=== PATIENT | female | born 1940 | race Caucasian/White ===

== ENCOUNTER → 2018-06-10 14:03 | Outpatient (CLI) | payer MEDICARE, SELFPAY | PROVIDERS: Family Provider Internal Medicine Nephrology; PCP Internal Medicine Nephrology; Visit Provider Family Medicine | DX: G90.9 Disorder of the autonomic nervous system, unspecified (principal); L97.412 Non-pressure chronic ulcer of right heel and midfoot with fat layer exposed; L97.511 Non-pressure chronic ulcer of other part of right foot limited to breakdown of skin; L97.521 Non-pressure chronic ulcer of other part of left foot limited to breakdown of skin; I70.201 Unspecified atherosclerosis of native arteries of extremities, right leg | CPT/HCPCS: 11042; 97597; 99203; 99213 ==

== ENCOUNTER → 2018-06-22 14:01 | Outpatient (CLI) | payer MEDICARE, SELFPAY | PROVIDERS: Family Provider Internal Medicine Nephrology; PCP Internal Medicine Nephrology; Visit Provider Family Medicine | DX: G90.9 Disorder of the autonomic nervous system, unspecified (principal); L97.412 Non-pressure chronic ulcer of right heel and midfoot with fat layer exposed; L97.521 Non-pressure chronic ulcer of other part of left foot limited to breakdown of skin; I70.201 Unspecified atherosclerosis of native arteries of extremities, right leg | CPT/HCPCS: 97597 ==

== ENCOUNTER → 2018-06-29 09:40 | Outpatient (CLI) | payer MEDICARE, SELFPAY | PROVIDERS: Family Provider Internal Medicine Nephrology; PCP Internal Medicine Nephrology; Visit Provider Family Medicine | DX: G60.9 Hereditary and idiopathic neuropathy, unspecified (principal); L97.412 Non-pressure chronic ulcer of right heel and midfoot with fat layer exposed; L97.521 Non-pressure chronic ulcer of other part of left foot limited to breakdown of skin; I70.201 Unspecified atherosclerosis of native arteries of extremities, right leg | CPT/HCPCS: 99212; 99213 ==

== ENCOUNTER → 2021-08-08 13:40 | Outpatient (CLI) | payer MEDICARE, SELFPAY | PROVIDERS: Family Provider Internal Medicine Nephrology; PCP Internal Medicine Nephrology; Referring Provider Internal Medicine Nephrology; Visit Provider Family Medicine | DX: L89.313 Pressure ulcer of right buttock, stage 3 (principal); L08.9 Local infection of the skin and subcutaneous tissue, unspecified; I12.0 Hypertensive chronic kidney disease with stage 5 chronic kidney disease or end stage renal disease; N18.6 End stage renal disease; R63.4 Abnormal weight loss; Z99.3 Dependence on wheelchair; Z59.89 Other problems related to housing and economic circumstances; Z63.8 Other specified problems related to primary support group; Z79.01 Long term (current) use of anticoagulants; Z74.09 Other reduced mobility | CPT/HCPCS: 11042; 87070; 87075; 87077; 87186; 87205; 99204; 99213 ==

== ENCOUNTER → 2021-08-20 14:23 | Outpatient (CLI) | payer MEDICARE, SELFPAY | PROVIDERS: Family Provider Internal Medicine Nephrology; PCP Internal Medicine Nephrology; Referring Provider Internal Medicine Nephrology; Visit Provider Family Medicine | DX: L89.313 Pressure ulcer of right buttock, stage 3 (principal); L08.9 Local infection of the skin and subcutaneous tissue, unspecified; B95.61 Methicillin susceptible Staphylococcus aureus infection as the cause of diseases classified elsewhere; B95.2 Enterococcus as the cause of diseases classified elsewhere; N18.6 End stage renal disease; R63.4 Abnormal weight loss; Z99.3 Dependence on wheelchair; Z59.89 Other problems related to housing and economic circumstances; Z63.8 Other specified problems related to primary support group; Z79.01 Long term (current) use of anticoagulants; Z74.09 Other reduced mobility | CPT/HCPCS: 11042; 87070; 87075; 87077; 87147; 87186; 87205; 99214 ==

== ENCOUNTER 2021-08-20 21:36 | Emergency (ER) | payer MEDICARE, SELFPAY ==
--- NOTE | 2021-08-20 21:46 | ED.GENADULT ---
HPI - General Adult General Chief complaint: Wound/Laceration Stated complaint: Bleeding Bed sore Time Seen by Provider: 08/20/21 21:36 History of Present Illness HPI narrative: 81-year-old female nonsmoker with history of SVT and GI bleed presents by EMS for evaluation of a bleeding wound on her right buttock. She had had some skin breakdown that was followed by wound care and had a debridement today. She started bleeding sooner after and reports a fairly large amount of blood that is saturated her clothing and at home. She denies much in the way of systemic findings and is not dizzy, weak or lightheaded. She has no chest pain or shortness of breath. She denies nausea, vomiting or diarrhea. Related Data Home Medications Medication Instructions Recorded Confirmed amlodipine 5 mg tablet (Norvasc) 10 mg PO QDAY #0 09/18/10 carvedilol 12.5 mg tablet (Coreg) 12.5 mg PO HS #0 09/18/10 lovastatin 40 mg tablet 20 mg PO QDAY #0 09/18/10 furosemide 40 mg tablet 80 mg PO QDAY #0 02/08/16 omeprazole 20 mg capsule,delayed 20 mg PO BID #0 02/08/16 release oxycodone 40 mg tablet,crush 10 mg #0 02/08/16 resistant,extended release 12 hr (OxyContin) sevelamer carbonate 800 mg tablet 800 mg PO TIDCC #0 02/08/16 (Renvela) naproxen 250 mg tablet 250 mg PO BID #0 02/21/16 carvedilol 25 mg tablet (Coreg) 25 mg PO QDAY #0 09/10/16 folic acid 1 mg tablet 1 mg PO TID #0 09/10/16 levothyroxine 150 mcg tablet 0.15 mg PO QAM #0 09/10/16 sodium polystyrene sulfonate 15 #0 09/10/16 gram-sorbitol 20 gram/60 mL oral susp (SPS (with sorbitol)) Allergies Allergy/AdvReac Type Severity Reaction Status Date / Time amoxicillin [AMOXICILLIN] Allergy Severe THROAT Unverified 08/12/17 12:10 SWELLING Penicillins [PENICILLINS] Allergy Severe I PUFF Unverified 08/12/17 12:10 UP, THROAT SWELLING Sulfa (Sulfonamide Allergy Unknown MOM HAD Unverified 08/12/17 12:10 Antibiotics) RXN, NOT PT [SULFA (SULFONAMIDE ANTIBIOTICS)] Review of Systems Review of Systems Narrative: GENERAL: Denies chills, fatigue, malaise, fever, sweats. HEENT: Denies sinus pain, ear pain, sore throat, difficulty swallowing, dizziness. RESPIRATORY: Denies dyspnea, cough, wheezing, hemoptysis, sputum. CARDIOVASCULAR: Denies chest pain, palpitations, orthopnea, edema, GASTROINTESTINAL: Denies nausea, vomiting, abdominal pain, diarrhea, constipation, melena. : Denies dysuria, frequency, incontinence, hematuria, urinary retention. MUSCULOSKELETAL: denies weakness, joint pain, or bony pain SKIN: See HPI NEUROLOGIC: Denies weakness, headache, numbness, change in speech, confusion, seizures, incoordination. PSYCHIATRIC: No concerning psychosocial issues. 12 point review of systems is negative except for those stated above Exam Narrative Exam Narrative: GENERAL: [81] year old patient appears stated age. Well-developed patient, in mild distress. Anxious HEAD: Atraumatic. Normocephalic. EYES: Pupils equal round and reactive. Extraocular motions intact. No scleral icterus. No injection or drainage. ENT: Nose without bleeding, purulent drainage. Throat without erythema, tonsillar hypertrophy or exudate. Airway patent. NECK: Trachea midline. Non tender CARDIOVASCULAR: Regular rate and rhythm without murmurs, gallops, or rubs. RESPIRATORY: Clear to auscultation. Breath sounds equal bilaterally. No wheezes, rales, or rhonchi. GASTROINTESTINAL: Abdomen soft, non-tender, nondistended. EXTREMITIES: No edema or joint tenderness. BACK: Nontender without deformity or crepitance. No flank tenderness. NEURO: AOx3. SKIN: 3 cm deep wound with clean edges and recent debridement on right buttock with slow oozing bleeding, no arterial involvement. No rash or erythema of visible areas Initial Vital Signs Initial Vital Signs: Vital Signs Pulse Rate 74 08/20/21 21:55 Pulse Oximetry 98 08/20/21 21:55 Course Course Course Narrative: 2144 -edges of wound injected with lidocaine with epinephrine and wound packed with Surgicel and pressure applied by 4x4s. Labs ordered Orders Ordered: ED Orders 08/20/21 21:53 Hemoglobin and Hematocrit Stat Discontinued Medications Lidocaine/Epinephrine (Lidocaine 1% W/Epi) 1 ml SUBCUT NOW ONE Stop: 08/20/21 21:37 Last Admin: 08/20/21 22:00 Dose: 1 ml Documented by: SHAHEED Vital Signs Vital signs: Vital Signs - 8 hr 08/20/21 21:55 08/20/21 21:57 08/20/21 22:00 Temperature 98.4 F Pulse Rate 74 72 74 Respiratory Rate 16 Blood Pressure 137/71 Pulse Oximetry 98 97 98 08/20/21 22:30 Temperature Pulse Rate 71 Respiratory Rate Blood Pressure Pulse Oximetry 96 Medical Decision Making Lab Data Result diagrams: 08/20/21 21:53 Labs: Lab Results 08/20/21 Range/Units 21:53 Hgb 9.2 L (12.0-16.0) g/dL Hct 27.6 L (36-46) % MDM Narrative Medical decision making narrative: Patient presents with bleeding from recent wound debridement, bleeding well controlled emergency department, observed for 2 hours, vital signs are stable, she has no systemic complaints, H&H stable. Discharge Plan Departure Patient Disposition: Home Clinical Impression: Bleeding from wound Instructions: How to Care for a Surgical Wound Activity Restrictions/Additional Instructions: *You have been diagnosed with [bleeding wound on buttock, resolved with intervention. Lab work is reassuring and bleeding is controlled *What to do: *Please continue to take your regular medications as directed. [ ] New medication prescriptions sent to your pharmacy: [ ] [ ] New medication written as a paper prescription [x ] No new medications given *Please follow up with your primary care provider in 2-3 days, call for an appointment. Let them know you were seen in the Emergency Department and that we ask that you be seen in follow up. We will electronically transmit a record of today's note if your PCP is in our system *If you do not have a primary care provider please contact the [facility] Resource line at [phone]. They will ask some questions about your medical history and help get you set up with a doctor in the community. *Return to Emergency Department if you should have any new, worsening or concerning symptoms, such as [fever greater than 101 F, shaking chills, worsening pain, persistent vomiting or other bothersome symptoms] Prescriptions: No Action carvedilol [Coreg] 12.5 MG tablet 12.5 mg PO HS Qty: 0 0RF lovastatin 40 MG tablet 20 mg PO QDAY Qty: 0 0RF amlodipine [Norvasc] 5 MG tablet 10 mg PO QDAY Qty: 0 0RF furosemide 40 MG tablet 80 mg PO QDAY Qty: 0 0RF omeprazole 20 MG capsule,delayed release(DR/EC) 20 mg PO BID Qty: 0 0RF sevelamer carbonate [Renvela] 800 MG tablet 800 mg PO TIDCC Qty: 0 0RF oxycodone [OxyContin] 40 MG tablet,oral only,ext.rel.12 hr 10 mg Qty: 0 0RF naproxen 250 MG tablet 250 mg PO BID Qty: 0 0RF folic acid 1 MG tablet 1 mg PO TID Qty: 0 0RF levothyroxine 150 MCG tablet 0.15 mg PO QAM Qty: 0 0RF carvedilol [Coreg] 25 MG tablet 25 mg PO QDAY Qty: 0 0RF sodium polystyrene sulf-sorbtl [SPS (with sorbitol)] 15-20 gram/60 mL suspension Qty: 0 0RF Referrals: Georges Sands MD [Primary Care Provider] -
[2021-08-20 21:55] VITALS: PULSE 74; O2SAT 98
[2021-08-20 21:57] VITALS: BP 137/71; PULSE 72; RESP 16; TEMP 36.9; O2SAT 97
[2021-08-20 22:00] VITALS: PULSE 74; O2SAT 98
[2021-08-20 22:00] LABS: Hematocrit 27.6 % (36-46); Hemoglobin 9.2 g/dL (12.0-16.0)
[2021-08-20] MEDS: LIDOCAINE 1% W/EPI 1 ML SUBCUT (22:00)
[2021-08-20 22:30] VITALS: PULSE 71; O2SAT 96
== END 2021-08-21 01:21 | disposition home or self-care (01) ==
PROVIDERS: Emergency Provider Emergency Medicine; Family Provider Internal Medicine Nephrology; PCP Internal Medicine Nephrology
DX: L76.22 Postprocedural hemorrhage of skin and subcutaneous tissue following other procedure (principal)
CPT/HCPCS: 11042; 85014; 85018; 87070; 87075; 87077; 87147; 87186; 87205; 99281; 99282

== ENCOUNTER → 2021-08-27 14:53 | Outpatient (CLI) | payer MEDICARE, SELFPAY | PROVIDERS: Family Provider Internal Medicine Nephrology; PCP Internal Medicine Nephrology; Referring Provider Internal Medicine Nephrology; Visit Provider Family Medicine | DX: L89.313 Pressure ulcer of right buttock, stage 3 (principal); L89.213 Pressure ulcer of right hip, stage 3; L08.89 Other specified local infections of the skin and subcutaneous tissue; B95.61 Methicillin susceptible Staphylococcus aureus infection as the cause of diseases classified elsewhere; B95.2 Enterococcus as the cause of diseases classified elsewhere; R63.4 Abnormal weight loss; N18.6 End stage renal disease; Z99.2 Dependence on renal dialysis; Z99.3 Dependence on wheelchair; Z59.89 Other problems related to housing and economic circumstances; Z63.8 Other specified problems related to primary support group; Z79.01 Long term (current) use of anticoagulants; Z74.09 Other reduced mobility | CPT/HCPCS: 11042; 17250; 99214 ==

== ENCOUNTER → 2021-09-03 15:05 | Outpatient (CLI) | payer MEDICARE, SELFPAY | PROVIDERS: Family Provider Internal Medicine Nephrology; PCP Internal Medicine Nephrology; Referring Provider Internal Medicine Nephrology; Visit Provider Family Medicine | DX: L89.313 Pressure ulcer of right buttock, stage 3 (principal); L89.213 Pressure ulcer of right hip, stage 3; L08.89 Other specified local infections of the skin and subcutaneous tissue; B95.61 Methicillin susceptible Staphylococcus aureus infection as the cause of diseases classified elsewhere; B95.2 Enterococcus as the cause of diseases classified elsewhere; I12.0 Hypertensive chronic kidney disease with stage 5 chronic kidney disease or end stage renal disease; N18.6 End stage renal disease; R63.4 Abnormal weight loss; Z99.3 Dependence on wheelchair; Z79.01 Long term (current) use of anticoagulants; Z59.89 Other problems related to housing and economic circumstances; Z74.09 Other reduced mobility; Z89.421 Acquired absence of other right toe(s) | CPT/HCPCS: 11042; 87070; 87075; 87205; 99212 ==

== ENCOUNTER → 2021-09-10 15:33 | Outpatient (CLI) | payer MEDICARE, SELFPAY | PROVIDERS: Family Provider Internal Medicine Nephrology; PCP Internal Medicine Nephrology; Referring Provider Internal Medicine Nephrology; Visit Provider Family Medicine | DX: L89.313 Pressure ulcer of right buttock, stage 3 (principal); L89.213 Pressure ulcer of right hip, stage 3; R63.4 Abnormal weight loss; N18.6 End stage renal disease; Z99.2 Dependence on renal dialysis; Z99.3 Dependence on wheelchair; Z59.89 Other problems related to housing and economic circumstances; Z79.01 Long term (current) use of anticoagulants | CPT/HCPCS: 11042 ==

== ENCOUNTER 2021-09-14 13:47 | Emergency (ER) | payer MEDICARE, SELFPAY ==
[2021-09-14] VITALS (11 sets, daily range): BP systolic 95–125; BP diastolic 51–88; PULSE 73–91; RESP 12–22; TEMP 37.4; O2SAT 92–100; BMI 26.4
--- NOTE | 2021-09-14 15:22 | ED_ITS ---
HPI - Wound/Laceration General Chief Complaint: Wound/Laceration Stated Complaint: pain lower back 2 hours Time Seen by Provider: 09/14/21 15:02 Source: patient Mode of arrival: Ambulatory History of Present Illness HPI narrative: Patient is an 81-year-old female. His end-stage renal disease on dialysis. Is followed by Nephrology. Does not have a primary doctor. Is also seeing wound care secondary to a pressure ulcer on her right hip/buttocks. She is currently on antibiotics although she is unsure exactly what antibiotic that it is. Her next dialysis is on Thursday of next week. She has had lower back pain and left hip pain for many weeks/months. She has been admitted to the hospital in the past and has been on IV antibiotics in the past which what sounds like has been osteomyelitis. She is on oxycodone at home that is prescribed by her installation drafter. She is here because over the past several days and especially over the past 24 hours she states that the pain is discussed to the point where she can not take it anymore. She can not sleep at night. At baseline she can walk but needs a walker. Her has to help her around to do most of her activities of daily living. She has not fallen. She has no fevers. She is taking all of her medications as directed. No change in any neurologic status. She stated multiple times that the discomfort that she arrives with today is the same discomfort that she has had for multiple months but she does cannot take the pain any longer. Related Data Home Medications Medication Instructions Recorded Confirmed amlodipine 5 mg tablet (Norvasc) 10 mg PO QDAY #0 09/18/10 carvedilol 12.5 mg tablet (Coreg) 12.5 mg PO HS #0 09/18/10 lovastatin 40 mg tablet 20 mg PO QDAY #0 09/18/10 furosemide 40 mg tablet 80 mg PO QDAY #0 02/08/16 omeprazole 20 mg capsule,delayed 20 mg PO BID #0 02/08/16 release oxycodone 40 mg tablet,crush 10 mg #0 02/08/16 resistant,extended release 12 hr (OxyContin) sevelamer carbonate 800 mg tablet 800 mg PO TIDCC #0 02/08/16 (Renvela) naproxen 250 mg tablet 250 mg PO BID #0 02/21/16 carvedilol 25 mg tablet (Coreg) 25 mg PO QDAY #0 09/10/16 folic acid 1 mg tablet 1 mg PO TID #0 09/10/16 levothyroxine 150 mcg tablet 0.15 mg PO QAM #0 09/10/16 sodium polystyrene sulfonate 15 #0 09/10/16 gram-sorbitol 20 gram/60 mL oral susp (SPS (with sorbitol)) Allergies Allergy/AdvReac Type Severity Reaction Status Date / Time amoxicillin [AMOXICILLIN] Allergy Severe THROAT Unverified 08/12/17 12:10 SWELLING Penicillins [PENICILLINS] Allergy Severe I PUFF Unverified 08/12/17 12:10 UP, THROAT SWELLING Sulfa (Sulfonamide Allergy Unknown MOM HAD Unverified 08/12/17 12:10 Antibiotics) RXN, NOT PT [SULFA (SULFONAMIDE ANTIBIOTICS)] Review of Systems Constitutional Constitutional: Denies fever(s) Cardiovascular Cardiovascular: Denies chest pain and Denies dyspnea Respiratory Respiratory: Denies dyspnea Gastrointestinal Gastrointestinal: Denies abdominal pain, Denies nausea and Denies vomiting Genitourinary Genitourinary: Denies dysuria Musculoskeletal Musculoskeletal: Reports system reviewed and no additional complaints, except as documented Integumentary/Breasts Skin/Breast: Reports system reviewed and no additional complaints, except as documented Neurologic Neurologic: Reports system reviewed and no additional complaints, except as documented Hematologic/Lymphatic On Anticoagulants: No Allergic/Immunologic Allergic/Immunologic: Reports system reviewed and no additional complaints, except as documented Patient History Medical History End stage renal disease on dialysis PSVT (paroxysmal supraventricular tachycardia) Puncture wound Social History lives independently: Yes Substance Use Type: does not use Exam Initial Vital Signs Initial Vital Signs: Vital Signs Temperature 99.3 F 09/14/21 14:05 Pulse Rate 80 09/14/21 14:05 Respiratory Rate 18 09/14/21 14:05 Blood Pressure 125/88 09/14/21 14:05 Pulse Oximetry 95 09/14/21 14:05 Const General: cooperative, healthy appearing and comfortable HENHI Head: normal to inspection and normocephalic Resp Effort & Inspection: normal respiratory effort Auscultation: clear to auscultation bilaterally Cardio Rate: regular rate Rhythm: regular rhythm GI Inspection: normal to inspection Palpation: soft and No tender Back/Spine/Pelvis Sacroiliac Joints: tender to palpation right Skin Other: Patient has a decubitus ulcer on the right buttocks without surrounding erythema. There is no skin changes over the area where she is having pain on the left side. Neuro General: patient alert and patient awake Cranial Nerves: CN's II-XI intact bilaterally Extrem General: capillary refill normal Psych Appearance: grossly normal Course Orders Ordered: ED Orders 09/14/21 15:24 MR lumbar spine wo/w con Stat 09/14/21 16:00 C-Reactive Protein Quant Stat Complete Blood Count AUTO DIFF Stat Comprehensive Metabolic Panel Stat Erythrocyte Sedimentation Rate Stat Lactate (Lactic Acid) Stat Lipase Stat Discontinued Medications Diazepam (Diazepam 2 Mg Tablet) 2 mg PO NOW ONE Stop: 09/14/21 15:47 Last Admin: 09/14/21 15:49 Dose: 2 mg Documented by: DONNA Fentanyl (Fentanyl 25 Mcg/Patch) 25 mcg TOP NOW ONE Stop: 09/14/21 18:09 Hydromorphone HCl (Hydromorphone 1 Mg Inj) 1 mg IV NOW ONE Stop: 09/14/21 15:25 Last Admin: 09/14/21 15:49 Dose: 1 mg Documented by: KBROTEM Hydromorphone HCl (Hydromorphone 1 Mg Inj) 1 mg IV NOW ONE Stop: 09/14/21 17:26 Last Admin: 09/14/21 17:49 Dose: 1 mg Documented by: JIMMIE Vital Signs Vital signs: Vital Signs - 8 hr 09/14/21 14:05 09/14/21 14:12 09/14/21 14:30 Temperature 99.3 F Pulse Rate 80 91 H 77 Respiratory Rate 18 17 Blood Pressure 125/88 125/58 L 102/62 Pulse Oximetry 95 96 100 09/14/21 15:00 09/14/21 15:30 09/14/21 15:59 Temperature Pulse Rate 76 79 82 Respiratory Rate 17 22 20 Blood Pressure 120/58 L 111/79 Pulse Oximetry 94 99 92 09/14/21 17:03 09/14/21 17:04 Temperature Pulse Rate 78 Respiratory Rate Blood Pressure 95/54 L Pulse Oximetry 93 MDM - Wound/Laceration Lab Data Attestation: I reviewed the patient's lab results. Result diagrams: 09/14/21 16:00 09/14/21 16:00 Labs: Lab Results 09/14/21 09/14/21 09/14/21 Range/Units 16:00 16:00 16:00 WBC 19.6 H (4.5-11.0) X10^3/uL RBC 2.62 L (4.0-5.2) X10^6/uL Hgb 8.5 L (12.0-16.0) g/dL Hct 25.3 L (36-46) % MCV 96.9 (80-100) fL MCH 32.7 (26-34) PG MCHC 33.7 (30-36) % RDW 20.0 H (11.6-14.8) % Plt Count 305 (150-400) X10^3/uL Neut % (Auto) 95.9 H (50-75) % Lymph % (Auto) 1.4 L (25-40) % [place] % (Auto) 2.3 L (3-14) % Eos % (Auto) 0.0 L (2-4) % Baso % (Auto) 0.4 (0-2) % Neut # (Auto) 79508 H (8515-2056) /uL Lymph # (Auto) 300 L (3215-4311) /uL [place] # (Auto) 500 (0-900) /uL Eos # (Auto) 0 (0-450) /uL Baso # (Auto) 100 (0-100) /uL ESR 78 H (0-20) MM/HR Sodium 136 L (137-145) mmol/L Potassium 3.8 (3.4-5.1) mmol/L Chloride 97 L (98-107) mmol/L Carbon Dioxide 36 H (22-32) mmol/L BUN 14 (7-17) mg/dL Creatinine 2.47 H (0.52-1.04) mg/dL Estimated GFR 19 L (>60) mL/min BUN/Creatinine Ratio 5.7 L (6-22) Glucose 85 (80-110) mg/dL Lactate 1.2 (0.7-2.1) mmol/L Calcium 7.9 L (8.4-10.2) mg/dL Total Bilirubin 0.6 (0.2-1.3) mg/dL AST 27 (14-36) IU/L ALT 10 (<35) IU/L Alkaline Phosphatase 195 H (38-126) U/L C-Reactive Protein 2.7 H (<1.0) mg/dL Total Protein 6.1 L (6.3-8.2) g/dL Albumin 2.8 L (3.5-5.0) g/dL Globulin 3.3 (1.7-4.1) g/dL Albumin/Globulin Ratio 0.8 L (1.0-2.8) Lipase 32 (23-300) U/L Imaging Data MRI lumbar: Radiologist's Impression: Launch?[address] [address] Magnetic Resonance Report Signed Patient: Yareli Doran MR#: [id number] : 1940 Acct:[id number] Age/Sex: 81 / F Date of Service: 09/14/21 Loc: ED Accession Number: [id number] ?? Procedure: MR lumbar spine wo/w con Ordering Provider: Kaleb Ruffin D.O. PROCEDURE:? MR LUMBAR SPINE WO/W CON ? INDICATIONS:? eval for osteo lumbar and L Si joint ? TECHNIQUE:? Noncontrast sagittal T1 spin echo and T2 fast spin echo, sagittal STIR, axial T1 and T2 fast spin echo through the lumbar spine.? In cases with scoliosis, additional coronal T2 fast spin echo may be performed.? After the administration of contrast, sagittal and axial T1 spin echo with fat saturation through the lumbar spine.? In this patient, additional images were also obtained through the sacrum, including oblique axial T1 weighted and T2 weighted images, T1 weighted oblique sagittal, stir oblique sagittal T1 weighted, and fat saturated T1 weighted images in the coronal and axial planes.? ? COMPARISON:? [facility], MR, MR LUMBAR SPINE WITH/WITHOUT CONTRAST, 02/28/2021, 17:05.? [facility], MR, MR LUMBAR SPINE WITH/WITHOUT CONTRAST, 07/08/2020, 15:28.? [facility], CT, CT LUMBAR SPINE WITH CONTRAST, 03/05/2021, 10:06. ? FINDINGS:? Image quality:? This examination is limited by involuntary motion artifact.? Metallic artifact from the left hip arthroplasty hardware is seen. ? Alignment and curvature:? There is normal bony alignment.? ? Marrow:? Marrow is of normal overall signal.? No acute vertebral body compression fractures.? At the L2-L3 level, there is again seen decreased T1 weighted signal.? The previously seen increased T2 weighted and STIR signal with enhancement is clearly improved compared to the 02/20/2021 examination, with a mild degree of marrow enhancement remaining.? No other areas of shila abnormal enhancement can be seen. ? Spinal cord:? Conus medullaris terminates at the L1 level.? Visualized spinal cord demonstrates normal signal, without suspicious enhancement.? ? Paraspinous soft tissues:? Generalized soft tissue swelling with edema and enhancement can be seen involving the soft tissues overlying the left sacrum.? No drainable abscess is seen. ? T12-L1:? Moderate loss of disc height is seen.? Loss of disc signal is seen.? Mild generalized disc bulge is seen.? Mild bilateral neural foraminal narrowing is seen.? No significant central canal narrowing is seen. Stable from the prior study.? ? L1-L2:? The disc height is well-preserved.? Loss of disc signal is seen at this level.? Mild generalized disc bulge is seen.? Moderate facet joint hypertrophy is seen.? There is mild right-sided and moderate left-sided neural foraminal narrowing.? No significant central narrowing is seen. When comparison is made with the prior images, these findings are similar.? ? L2-L3:? This disc level demonstrates prominent irregularity of the endplates, as before.? Moderate generalized disc bulge is seen. Moderate facet joint hypertrophy is seen.? There is moderate to severe bilateral neural foraminal narrowing seen, with an associated a degree of compression seen upon the exiting nerve roots.? At least moderate central canal narrowing is seen at this level.? The degree of inflammatory change at this level is improved compared to the prior MRI. ? L3-L4:? Moderate loss of disc height is seen.? Loss of disc signal is seen.? Moderate generalized disc bulge is seen.? At least moderate facet hypertrophy is seen.? There is at least moderate left-sided and mild right-sided neural foraminal narrowing. Mild central canal narrowing is seen.? When comparison is made with the prior images, these findings are similar.? ? L4-L5:? At least moderate loss of disc height and disc signal can be seen.? At least moderate disc bulge is seen.? Moderate to prominent facet hypertrophy is seen.? There is at least moderate bilateral neural foraminal narrowing seen at this level, right worse than left. There is a degree of compression seen upon the exiting nerve roots.? At least moderate central canal narrowing is seen. When comparison is made with the prior images, these findings are similar.? ? L5-S1:? The disc height is well-preserved.? Loss of disc signal is seen at this level.? Moderate generalized disc bulge is seen. Moderate facet joint hypertrophy is seen.? Mild to moderate bilateral neural foraminal narrowing can be seen.? No significant central canal narrowing is seen. Stable from the prior study.? ? ? IMPRESSION:? At L2-L3, there is mild residual abnormal endplate signal and enhancement, which is improved compared to the prior MRI.? The imaging appearance is most consistent with resolving osteomyelitis. ? There is abnormal soft tissue edema and enhancement seen overlying the left sacrum.? However, no soft tissue abscess can be seen.? No sacral osteomyelitis is detected. ? Multiple levels of degenerative change are seen, which appear similar to the prior MRI. ? ? Dictated by: Palmer Boothe M.D. on 09/14/2021 at 16:14 ? ? Approved by: Palmer Boothe M.D. on 09/14/2021 at 16:24?? [facility] Narrative Medical decision making narrative: Patient does have a relatively localized area discomfort over her left upper buttocks/SI joint. There is no skin changes over the area. There does appear to be some fullness under the area. Does not seem to get worse when she stands but is definitely worse with palpation. She does have a leukocytosis and also an elevated ESR and CRP which she also has a right-sided acute was also that she is currently being treated for with antibiotics. Patient is very clear that the symptoms she presents with today are not new and have been going on for months. The MRI shows thickening of the area where she is having the discomfort but no signs of osteomyelitis in this area no signs of abscess. The osteomyelitis of the spine appears to be improving. Patient is not septic. I do suspect this is a pain control issue. Plan will be is to send her home with a fentanyl patch. She can use the oxycodone on top this if needed however had a very long discussion with the patient and her at bedside regarding the concern for sedation. Will hold on any changes to antibiotics for now. Patient was given return precautions. She expressed understanding and agreement. Discharge Plan Departure Patient Disposition: Home Clinical Impression: Pain of left sacroiliac joint Instructions: How to Prevent Falls Activity Restrictions/Additional Instructions: I do recommend that you continue to take all of your medications as directed. You were given a fentanyl patch today. This should provide a more stable pain control for you. You can take the oxycodone on top of this only if needed. I also recommend that use the lidocaine patches that you already have at home. Continue the rest of your medications as directed. Keep your dialysis a ppointment on Thursday. Return to the emergency department for any new symptoms. Prescriptions: No Action carvedilol [Coreg] 12.5 MG tablet 12.5 mg PO HS Qty: 0 0RF lovastatin 40 MG tablet 20 mg PO QDAY Qty: 0 0RF amlodipine [Norvasc] 5 MG tablet 10 mg PO QDAY Qty: 0 0RF furosemide 40 MG tablet 80 mg PO QDAY Qty: 0 0RF omeprazole 20 MG capsule,delayed release(DR/EC) 20 mg PO BID Qty: 0 0RF sevelamer carbonate [Renvela] 800 MG tablet 800 mg PO TIDCC Qty: 0 0RF oxycodone [OxyContin] 40 MG tablet,oral only,ext.rel.12 hr 10 mg Qty: 0 0RF naproxen 250 MG tablet 250 mg PO BID Qty: 0 0RF folic acid 1 MG tablet 1 mg PO TID Qty: 0 0RF levothyroxine 150 MCG tablet 0.15 mg PO QAM Qty: 0 0RF carvedilol [Coreg] 25 MG tablet 25 mg PO QDAY Qty: 0 0RF sodium polystyrene sulf-sorbtl [SPS (with sorbitol)] 15-20 gram/60 mL suspension Qty: 0 0RF Referrals: Georges Sands MD [Primary Care Provider] -
--- NOTE | 2021-09-14 15:24 | DI.MRI.S_ITS ---
PROCEDURE: MR LUMBAR SPINE WO/W CON INDICATIONS: eval for osteo lumbar and L Si joint TECHNIQUE: Noncontrast sagittal T1 spin echo and T2 fast spin echo, sagittal STIR, axial T1 and T2 fast spin echo through the lumbar spine. In cases with scoliosis, additional coronal T2 fast spin echo may be performed. After the administration of contrast, sagittal and axial T1 spin echo with fat saturation through the lumbar spine. In this patient, additional images were also obtained through the sacrum, including oblique axial T1 weighted and T2 weighted images, T1 weighted oblique sagittal, stir oblique sagittal T1 weighted, and fat saturated T1 weighted images in the coronal and axial planes. COMPARISON: [facility], MR, MR LUMBAR SPINE WITH/WITHOUT CONTRAST, 02/28/2021, 17:05. [facility], MR, MR LUMBAR SPINE WITH/WITHOUT CONTRAST, 07/08/2020, 15:28. [facility], CT, CT LUMBAR SPINE WITH CONTRAST, 03/05/2021, 10:06. FINDINGS: Image quality: This examination is limited by involuntary motion artifact. Metallic artifact from the left hip arthroplasty hardware is seen. Alignment and curvature: There is normal bony alignment. Marrow: Marrow is of normal overall signal. No acute vertebral body compression fractures. At the L2-L3 level, there is again seen decreased T1 weighted signal. The previously seen increased T2 weighted and STIR signal with enhancement is clearly improved compared to the 02/20/2021 examination, with a mild degree of marrow enhancement remaining. No other areas of shila abnormal enhancement can be seen. Spinal cord: Conus medullaris terminates at the L1 level. Visualized spinal cord demonstrates normal signal, without suspicious enhancement. Paraspinous soft tissues: Generalized soft tissue swelling with edema and enhancement can be seen involving the soft tissues overlying the left sacrum. No drainable abscess is seen. T12-L1: Moderate loss of disc height is seen. Loss of disc signal is seen. Mild generalized disc bulge is seen. Mild bilateral neural foraminal narrowing is seen. No significant central canal narrowing is seen. Stable from the prior study. L1-L2: The disc height is well-preserved. Loss of disc signal is seen at this level. Mild generalized disc bulge is seen. Moderate facet joint hypertrophy is seen. There is mild right-sided and moderate left-sided neural foraminal narrowing. No significant central narrowing is seen. When comparison is made with the prior images, these findings are similar. L2-L3: This disc level demonstrates prominent irregularity of the endplates, as before. Moderate generalized disc bulge is seen. Moderate facet joint hypertrophy is seen. There is moderate to severe bilateral neural foraminal narrowing seen, with an associated a degree of compression seen upon the exiting nerve roots. At least moderate central canal narrowing is seen at this level. The degree of inflammatory change at this level is improved compared to the prior MRI. L3-L4: Moderate loss of disc height is seen. Loss of disc signal is seen. Moderate generalized disc bulge is seen. At least moderate facet hypertrophy is seen. There is at least moderate left-sided and mild right-sided neural foraminal narrowing. Mild central canal narrowing is seen. When comparison is made with the prior images, these findings are similar. L4-L5: At least moderate loss of disc height and disc signal can be seen. At least moderate disc bulge is seen. Moderate to prominent facet hypertrophy is seen. There is at least moderate bilateral neural foraminal narrowing seen at this level, right worse than left. There is a degree of compression seen upon the exiting nerve roots. At least moderate central canal narrowing is seen. When comparison is made with the prior images, these findings are similar. L5-S1: The disc height is well-preserved. Loss of disc signal is seen at this level. Moderate generalized disc bulge is seen. Moderate facet joint hypertrophy is seen. Mild to moderate bilateral neural foraminal narrowing can be seen. No significant central canal narrowing is seen. Stable from the prior study. IMPRESSION: At L2-L3, there is mild residual abnormal endplate signal and enhancement, which is improved compared to the prior MRI. The imaging appearance is most consistent with resolving osteomyelitis. There is abnormal soft tissue edema and enhancement seen overlying the left sacrum. However, no soft tissue abscess can be seen. No sacral osteomyelitis is detected. Multiple levels of degenerative change are seen, which appear similar to the prior MRI. Dictated by: Palmer Boothe M.D. on 09/14/2021 at 16:14 Approved by: Palmer Boothe M.D. on 09/14/2021 at 16:24
[2021-09-14] MEDS: diazePAM 2 MG TABLET PO (15:49)
[2021-09-14] MEDS: HYDROMORPHONE 1 MG INJ IV ×2 (15:49→17:49)
[2021-09-14 16:10] LABS: Add Manual Diff / Slide Review NO; Basophils Absolute Auto 100 /uL (0-100); Basophils Percent Auto 0.4 % (0-2); Eosinophils Absolute Auto 0 /uL (0-450); Hematocrit 25.3 % (36-46); Hemoglobin 8.5 g/dL (12.0-16.0); Lymphocytes Absolute Auto 300 /uL (1100-4500); Lymphocytes Percent Auto 1.4 % (25-40); Mean Corpuscular HGB Conc 33.7 % (30-36); Mean Corpuscular Hemoglobin 32.7 PG (26-34); Mean Corpuscular Volume 96.9 fL (80-100); Monocytes Absolute Auto 500 /uL (0-900); Monocytes Percent Auto 2.3 % (3-14); Neutrophils Absolute Auto 18800 /uL (1500-7000); Neutrophils Percent Auto 95.9 % (50-75); Platelet Count 305 X10^3/uL (150-400); Red Blood Cell Count 2.62 X10^6/uL (4.0-5.2); White Blood Cell Count 19.6 X10^3/uL (4.5-11.0)
[2021-09-14 16:32] LABS: Erythrocyte Sedimentation Rate 78 MM/HR (0-20)
[2021-09-14 16:35] LABS: Lactate (Lactic Acid) 1.2 mmol/L (0.7-2.1)
[2021-09-14 16:37] LABS: Alanine Aminotransferase 10 IU/L (<35); Albumin 2.8 g/dL (3.5-5.0); Albumin Globulin Ratio 0.8 (1.0-2.8); Alkaline Phosphatase 195 U/L (38-126); Aspartate Aminotransferase 27 IU/L (14-36); BUN Creatinine Ratio 5.7 (6-22); Bilirubin Total 0.6 mg/dL (0.2-1.3); Blood Urea Nitrogen 14 mg/dL (7-17); C-Reactive Protein Quant 2.7 mg/dL (<1.0); Calcium 7.9 mg/dL (8.4-10.2); Carbon Dioxide 36 mmol/L (22-32); Chloride 97 mmol/L (98-107); Estimated Glomerular Filt Rate 19 mL/min (>60); Globulin 3.3 g/dL (1.7-4.1); Glucose 85 mg/dL (80-110); HEMOLYSIS < 15 (0-50); Lipase 32 U/L (23-300); Potassium 3.8 mmol/L (3.4-5.1); Sodium 136 mmol/L (137-145); Total Protein 6.1 g/dL (6.3-8.2)
[2021-09-14] MEDS: fentaNYL 25 MCG/PATCH TOP (18:31)
== END 2021-09-14 19:50 | disposition home or self-care (01) ==
PROVIDERS: Emergency Provider Emergency Medicine; Family Provider Internal Medicine Nephrology; PCP Internal Medicine Nephrology
DX: M53.3 Sacrococcygeal disorders, not elsewhere classified (principal); M25.552 Pain in left hip
CPT/HCPCS: 36415; 72158; 80053; 83605; 83690; 85025; 85651; 86140; 96374; 96376; 99284; A9579; J1170

== ENCOUNTER → 2021-09-17 15:14 | Outpatient (CLI) | payer MEDICARE, SELFPAY | PROVIDERS: Family Provider Internal Medicine Nephrology; PCP Internal Medicine Nephrology; Referring Provider Internal Medicine Nephrology; Visit Provider Family Medicine | DX: L89.313 Pressure ulcer of right buttock, stage 3 (principal); L08.9 Local infection of the skin and subcutaneous tissue, unspecified; L89.213 Pressure ulcer of right hip, stage 3; M46.26 Osteomyelitis of vertebra, lumbar region; D72.829 Elevated white blood cell count, unspecified; R79.82 Elevated C-reactive protein (CRP); R63.4 Abnormal weight loss; N18.6 End stage renal disease; Z99.3 Dependence on wheelchair; Z74.09 Other reduced mobility; Z79.01 Long term (current) use of anticoagulants | CPT/HCPCS: 11042; 87070; 87075; 87077; 87147; 87186; 87205; 99213 ==

== ENCOUNTER → 2021-09-24 14:57 | Outpatient (CLI) | payer MEDICARE, SELFPAY | PROVIDERS: Family Provider Internal Medicine Nephrology; PCP Internal Medicine Nephrology; Referring Provider Internal Medicine Nephrology; Visit Provider Family Medicine | DX: L89.313 Pressure ulcer of right buttock, stage 3 (principal); L89.213 Pressure ulcer of right hip, stage 3; L08.89 Other specified local infections of the skin and subcutaneous tissue; B95.7 Other staphylococcus as the cause of diseases classified elsewhere; M46.26 Osteomyelitis of vertebra, lumbar region; R63.4 Abnormal weight loss; N18.6 End stage renal disease; D72.829 Elevated white blood cell count, unspecified; R79.82 Elevated C-reactive protein (CRP); Z74.09 Other reduced mobility; Z99.3 Dependence on wheelchair; Z79.01 Long term (current) use of anticoagulants | CPT/HCPCS: 11042; 99214 ==

== ENCOUNTER → 2021-10-08 15:18 | Outpatient (CLI) | payer MEDICARE, SELFPAY | PROVIDERS: Family Provider Internal Medicine Nephrology; PCP Internal Medicine Nephrology; Referring Provider Internal Medicine Nephrology; Visit Provider Family Medicine | DX: L89.313 Pressure ulcer of right buttock, stage 3 (principal); L89.213 Pressure ulcer of right hip, stage 3; L08.9 Local infection of the skin and subcutaneous tissue, unspecified; M46.26 Osteomyelitis of vertebra, lumbar region; D72.829 Elevated white blood cell count, unspecified; R79.82 Elevated C-reactive protein (CRP); I12.0 Hypertensive chronic kidney disease with stage 5 chronic kidney disease or end stage renal disease; N18.6 End stage renal disease; Z99.3 Dependence on wheelchair; Z79.01 Long term (current) use of anticoagulants; Z74.09 Other reduced mobility; Z91.19 Patient's noncompliance with other medical treatment and regimen | CPT/HCPCS: 11042; 36415; 80053; 85025; 85651; 86140; 87070; 87075; 87077; 87186; 87205; 99212; 99213 ==

== ENCOUNTER → 2021-10-08 16:41 | Outpatient (CLI) | payer MEDICARE, SELFPAY ==
[2021-10-08 17:46] LABS: Add Manual Diff / Slide Review NO; Basophils Absolute Auto 100 /uL (0-100); Basophils Percent Auto 0.6 % (0-2); Eosinophils Absolute Auto 0 /uL (0-450); Eosinophils Percent Auto 0.5 % (2-4); Hematocrit 31.3 % (36-46); Hemoglobin 10.5 g/dL (12.0-16.0); Lymphocytes Absolute Auto 600 /uL (1100-4500); Lymphocytes Percent Auto 6.7 % (25-40); Mean Corpuscular HGB Conc 33.6 % (30-36); Mean Corpuscular Hemoglobin 33.8 PG (26-34); Mean Corpuscular Volume 100.5 fL (80-100); Monocytes Absolute Auto 700 /uL (0-900); Monocytes Percent Auto 7.6 % (3-14); Neutrophils Absolute Auto 8000 /uL (1500-7000); Neutrophils Percent Auto 84.6 % (50-75); Platelet Count 384 X10^3/uL (150-400); Red Blood Cell Count 3.12 X10^6/uL (4.0-5.2); White Blood Cell Count 9.5 X10^3/uL (4.5-11.0)
[2021-10-08 18:02] LABS: Alanine Aminotransferase 11 IU/L (<35); Albumin 3.3 g/dL (3.5-5.0); Albumin Globulin Ratio 0.9 (1.0-2.8); Alkaline Phosphatase 185 U/L (38-126); Aspartate Aminotransferase 26 IU/L (14-36); BUN Creatinine Ratio 8.9 (6-22); Bilirubin Total 0.4 mg/dL (0.2-1.3); Blood Urea Nitrogen 33 mg/dL (7-17); C-Reactive Protein Quant 3.2 mg/dL (<1.0); Calcium 8.4 mg/dL (8.4-10.2); Carbon Dioxide 35 mmol/L (22-32); Chloride 94 mmol/L (98-107); Estimated Glomerular Filt Rate 12 mL/min (>60); Globulin 3.6 g/dL (1.7-4.1); Glucose 112 mg/dL (80-110); HEMOLYSIS < 15 (0-50); Potassium 4.3 mmol/L (3.4-5.1); Sodium 135 mmol/L (137-145); Total Protein 6.9 g/dL (6.3-8.2)
[2021-10-08 18:06] LABS: Erythrocyte Sedimentation Rate 60 MM/HR (0-20)
== END ==
PROVIDERS: Family Provider Internal Medicine Nephrology; PCP Internal Medicine Nephrology; Referring Provider Family Medicine; Visit Provider Family Medicine
DX: L08.9 Local infection of the skin and subcutaneous tissue, unspecified (principal)
CPT/HCPCS: 36415; 80053; 85025; 85651; 86140